=== PATIENT | female | born 2000 | race Caucasian/White ===

== ENCOUNTER 2025-07-03 10:57 | Outpatient (AMB) | payer MEDICAID, SELFPAY ==
[2025-07-03 11:16] VITALS: BP 128/77; PULSE 80; RESP 18; TEMP 36.2; O2SAT 98; BMI 30.9
--- NOTE | 2025-07-03 11:16 | OBCLNT_ITS ---
Vital Signs 07/03/25 11:16 Height 1.5 m Height Method Stated Weight 69.4 kg Weight Measurement Method Standing Scale BMI 30.9 BP 128/77 Blood Pressure Source Automatic Cuff Blood Pressure Location Left Upper Arm Position Sitting Respiration 18 Pulse 80 Pulse Source Monitor Temp 97.2 F Temp Source Oral Pulse Oximetry (%) 98 Oxygen Delivery Method Room Air Allergies/Home Meds Allergies & Medications Allergies No Known Allergies Allergy (Verified 07/03/25 11:18) Medication Reconciliation vit no.95-ferrous fumarate 28 mg-folic acid 800 mcg tablet () 1 tab PO QDAY 05/27/23 [History Confirmed 07/03/25] azithromycin 500 mg tablet 1,000 mg (2 x 500 mg) PO QDAY 1 day #2 tabs 07/03/25 [Rx] azithromycin 500 mg tablet 1,000 mg (2 x 500 mg) PO QDAY chlamydia 1 day #2 tabs 07/03/25 [Rx] Intake Visit Data Collection New Patient or Established: Established Patient (seen at [facility] within 3 years) Reason for Visit:: OB Seen by Clinical Staff ONLY (RN/MA): No Directory Clerk Required: No Do You Feel Safe at Home: Yes Authorities Contacted: N/A PCP or OBGYN visit in last 3 months: Yes Hx Now: Yes Are you currently on any form of Control: No Pain Present Currently: No Pain Scale Used: Eugene-Willis/Numerical Pain scale:: 0 Smoking Status Smoking Status: Never smoker Immunizations Flu Vaccine in the Last 12 Months: No Flu Vaccine Exclusion Criteria: Refused by Patient Questionnaires Covid-19 Vaccine Questionnaire Has patient been vacinated for Covid-19 Have you been vacinated for Covid-19: No PHQ-9 PHQ-2 Over the last 2 weeks, how often have you been bothered by any of the following problems? 1. Little interest or pleasure in doing things: not at all 2. Feeling down, depressed, or hopeless: not at all Total score: 0 PHQ-9 3. Trouble falling or staying asleep, or sleeping too much: Not at all 4. Feeling tired or having little energy: Not at all 5. Poor appetite or overeating: Not at all 6. Feeling bad about yourself - or that you are a failure or have let yourself or your family down: Not at all 7. Trouble concentrating on things, such as reading the newspaper or watching television: Not at all 8. Moving or speaking so slowly that other people could have noticed? - Or the opposite - being so fidgety or restless that you have been moving around a lot more than usual: not at all 9. Thoughts that you would be better off or of hurting yourself in some way: Not at all Total score: 0 If you checked off any problems, how difficult have these problems made it for you to do your work, take care of things at home, or get along with other people?: not difficult at all Source: Developed by Drs. Zechariah Kimbrough, Belgica Francois, Toño De La Garza and colleagues, with an educational elizabeth from [employer]. Depression screen completed yes Social History Living Situation History Marital Status: Lives With: Family Housing: Apartment Tobacco History Smoking Status: Never smoker Second Hand Smoke Exposure: No Alcohol History Alcohol Intake: Never Domestic Abuse History Do You Feel Safe at Home: Yes History of Present Illness HPI Narrative 25-year-old 3 para 2 for OBI. Patient is a transfer from Dr Galvez's office. Poor care and limited visits at Dr Galvez so patient was asked to leave care. Last menstrual period. 2024. Estimated due date July 27, 2025. Patient reports good movement. Denies leaking. Denies bleeding. She states that she thought she had an ultrasound at Dr Galvez's. And that she did the carrier screen. There is no records of that. Denies social habits. Denies surgery. Denies chronic illness. She had blood transfusion for bleeding after the first . Patient still working and she would like to start on disability. 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 Last. Was October 20, 2024. Patient is her dates. Estimated due date July 27, 2025. Reports movement. Denies leaking, bleeding, contractions. Patient is still working at 36 weeks. Her last date of work will be July 07. And disability will start July 08. History of positive chlamydia with this and no treatment. 25-year-old 3 para 2 for OBI. Last. Was October 20, 2024. Patient is her dates. Estimated due date July 27, 2025. Reports movement. Denies leaking, bleeding, contractions. Patient is still working at 36 weeks. Her last date of work will be July 07. And disability will start July 08. History of positive chlamydia with this and no treatment. OB ultrasound today baby measured 2552 g. Measuring 35 weeks. LAILA was 8.3. Baby is breech and placenta anterior. Patient sent to labor and delivery for NST and complete OB sono. I did new swab and GBS today. Patient and partner were given Zithromax 1 g p.o. to take now. I discussed safe sex and compliance with taking no medication for positive chlamydia. No sex for at least a week after both taken and then condoms for 2 weeks. Discussed labor precautions and kick count. We did no OB panel today including the 1 hour GTT and A1c. Return in a week OB check Menstrual History Menstrual reliability: definite Flow: normal Menstrual regularity: regular Monthly: Yes Age at menarche: 11 On control pills at conception: No OB History : 3 Para: 2 Hx # Pregnancies: 0 # of Living Children: 2 Delivery History 1st : Child's name: NA date: 03/29/21 sex: female Delivery type: vaginal weight (lbs): 3175.147 g History of depression before or after : No 2nd : Child's name: NA date: 05/31/23 sex: female Delivery type: vaginal History of depression before or after : No Infection History & Risk Evaluation History of STDs: none HIV risk evaluation: low risk Hepatitis B risk evaluation: low risk Patient or partner has history of Genital Herpes: No Varicella/chicken pox status: immunized Genetic Screening & History Genetic Screening/Teratology Counseling - Includes patient, baby's father, or anyone in either family with: 1. Patient's age 35 years or older as of estimated date of delivery: No 2. Thalassemia (Latvian, Hungarian, Mediterranean, or Background); MCV less than 80: No 3. Neural Tube Defect (Meningomyelocele, Spina Bifida, or Anencephaly): No 4. Congenital Heart Defect: No 5. Down Syndrome: No 6. Nicola-Sachs (Ashkenazi Worship, Cajun, [place]ian [place]): No 7. Padmaja Disease (Ashkenazi Worship): No 8. Familial Dysautonomia (Ashkenazi Worship): No 9. Sickle Cell Disease or Trait (): No 10. Hemophilia or other blood disorders: No 11. Muscular Dystrophy: No 12. Cystic Fibrosis: No 13. Shen's Chorea: No 14. Mental Retardation/Autism: No 15. Other inherited genetic or chromosomal disorder: No 16. Maternal Metabolic Disorder (EG,TYPE 1 Diabetes, PKU): No 17. Patient or baby's father had a child with defects not listed above: No 18. Recurrent loss or a stillbirth: No 19. Medications (including supplements, vitamins, herbs or otc drugs)/illicit/recreational drugs/alcohol since last menstrual period: No 20. Any other: No Infection History 1. Live with someone with TB or exposed to TB: No 2. Rash or viral illness since last menstrual period: No 3. Hepatitis B,C: No 4. History of STD: chlamydia Other (see comments) Source: [employer] Review of Systems Review of Systems Systems Reviewed: All systems reviewed, normal except as documented Exam General Limitations: no limitations General Appearance: alert, in no apparent distress, comfortable, cooperative, h ealthy appearing, well developed and well groomed Head Head exam: atraumatic, normocephalic and normal inspection Neck Neck exam: Present normal inspection, full ROM and trachea midline Chest Chest inspection: Present normal inspection and symmetric chest wall rise Resp Respiratory exam: Present normal lung sounds bilaterally Card Cardiovascular exam: Present regular rate, normal rhythm and normal heart sounds Psych Psychiatric exam: Present normal affect and normal mood Office Procedures OBC Clinic LOC & Office Proc's Nursing/Assessment Patient Status: Established Patient OB Clinic Nursing Assessment: Medication Reconciliation, Update PMH in EMR and Vital Signs OB Clinic Coordination of Care: Consent,records obtained, informed consent, Education Simp Pt/Fam, Lab and Imaging orders, Results/Orders obtained and Staff clarify orders Special Needs: Heart tones Established Patient Charge Established Patient Point Assignment: 110 Established Patient Point Charge: EP Level 3 (80-115) Assessment & Plan Diagnosis / Problem List (1) Encounter for supervision of high risk in third trimester, antepartum: Status: Acute (2) Chlamydia infection affecting : Status: Acute Qualifiers: Trimester: third trimester Qualified Code(s): O98.813 - Other maternal infectious and parasitic diseases complicating , third trimester; A74.9 - Chlamydial infection, unspecified Plan NST and complete OB at labor and delivery today. OB panel, 1 hour and A1c given to patient. Discussed safe sex today. I gave patient and partner both Zithromax 1 g p.o. No sex for at least a week. And condoms after that. Discussed kick count and labor precautions. Disability will start on July 08, 2025. Last date of work will be July 07, 2025. Return in 1 week for OB check Additional Plan Follow Up: 1 Week (obc)
== END 2025-07-03 11:37 | disposition home or self-care (01) ==
PROVIDERS: PCP Family Medicine; Referring Provider Family Medicine; Supervising Provider Advanced Practice Midwife; Visit Provider Advanced Practice Midwife
DX: O09.893 Supervision of other high risk pregnancies, third trimester (principal); O98.313 Other infections with a predominantly sexual mode of transmission complicating pregnancy, third trimester; A56.8 Sexually transmitted chlamydial infection of other sites; Z3A.36 36 weeks gestation of pregnancy
CPT/HCPCS: 99213; G0463

== ENCOUNTER 2025-07-03 11:56 | Outpatient (CLI) | payer MEDICAID, SELFPAY ==
[2025-07-03 12:02] VITALS: BP 115/65; PULSE 88
[2025-07-03 12:05] VITALS: BP 115/65; PULSE 88; RESP 16; RESP 99; TEMP 36.8; BMI 30.9
--- NOTE | 2025-07-03 12:05 | XR_ITS ---
Examination: Complete OB ultrasound greater than 14 weeks Date and time of exam: 07/03/2025 at 12:47 p.m. INDICATION: Late transfer to care. Findings: Viable intrauterine single fetus with single amniotic sac, LAILA of 8.3 cm. . Composite estimated gestational age based on BPD, head circumference, abdominal circumference, femur length is 35 weeks 0 days, with ALYSSA of 08/07/2025. Nearly 3-week discrepancy between ultrasound gestational age and clinical gestational age of 37 weeks, 6 days with ALYSSA of 07/18/2025. presentation: Breech Cardiac motion: 145 bpm. Four-chamber heart. Placenta: Anterior, grade 2, no previa or abruption. survey is limited due to advanced gestational age. No hydronephrosis. Bladder, three-vessel cord, cord insertion and stomach are visualized. EFW = 2552.5 g +/-378 g Cervix: Measures 6.3 cm in length, closed. Maternal ovaries obscured by bowel gas. Impression: Single live IUP in breech position. Composite estimated gestational age is 35 weeks 0 days, with ALYSSA of 08/07/2025. Nearly 3-week discrepancy between ultrasound gestational age and clinical gestational age of 37 weeks, 6 days with ALYSSA of 07/18/2025. LAILA = 8.3 cm.
== END 2025-07-03 13:45 | disposition home or self-care (01) ==
LOC: S4S1 11:57 → S4SX 11:57
PROVIDERS: Referring Provider Advanced Practice Midwife; Visit Provider Advanced Practice Midwife
DX: Z34.83 Encounter for supervision of other normal pregnancy, third trimester (principal); Z36.9 Encounter for antenatal screening, unspecified; Z3A.37 37 weeks gestation of pregnancy
CPT/HCPCS: 59025; 76805

== ENCOUNTER 2025-07-13 11:42 | Outpatient (AMB) | payer MEDICAID, SELFPAY ==
[2025-07-13 11:47] VITALS: BP 131/78; PULSE 99; RESP 18; TEMP 36.2; O2SAT 98; BMI 31.1
--- NOTE | 2025-07-13 11:47 | AMB.OBVISIT ---
Vital Signs 07/13/25 11:47 Height 1.5 m Height Method Stated Weight 70.08 kg Weight Measurement Method Standing Scale BMI 31.1 BP 131/78 H Blood Pressure Source Automatic Cuff Blood Pressure Location Left Upper Arm Position Standing Respiration 18 Pulse 99 Pulse Source Monitor Temp 97.2 F Temp Source Oral Pulse Oximetry (%) 98 Oxygen Delivery Method Room Air Allergies/Home Meds Allergies & Medications Allergies No Known Allergies Allergy (Verified 07/13/25 11:48) Medication Reconciliation vit no.95-ferrous fumarate 28 mg-folic acid 800 mcg tablet () 1 tab PO QDAY 05/27/23 [History Confirmed 07/13/25] ferrous sulfate 325 mg (65 mg iron) tablet 325 mg PO BID #60 tabs 07/13/25 [Rx] fluconazole 150 mg tablet 150 mg PO QDAY 3 days #3 tabs 07/13/25 [Rx] metronidazole 500 mg tablet 500 mg PO BID 7 days #14 tabs 07/13/25 [Rx] Intake Visit Data Collection New Patient or Established: Established Patient (seen at [facility] within 3 years) Reason for Visit:: OBC Seen by Clinical Staff ONLY (RN/MA): No All Round Logger Required: No Do You Feel Safe at Home: Yes Authorities Contacted: N/A PCP or OBGYN visit in last 3 months: Yes Date of Last PCP or OBGYN visit: 07/03/25 Hx Now: Yes Are you currently on any form of Control: No Pain Present Currently: No Pain Scale Used: Eugene-Willis/Numerical Pain scale:: 0 Smoking Status Smoking Status: Never smoker Immunizations Flu Vaccine in the Last 12 Months: No Flu Vaccine Exclusion Criteria: No Exclusion Criteria Questionnaires Covid-19 Vaccine Questionnaire Has patient been vacinated for Covid-19 Have you been vacinated for Covid-19: No PHQ-9 PHQ-2 Over the last 2 weeks, how often have you been bothered by any of the following problems? 1. Little interest or pleasure in doing things: not at all 2. Feeling down, depressed, or hopeless: not at all Total score: 0 PHQ-9 3. Trouble falling or staying asleep, or sleeping too much: Not at all 4. Feeling tired or having little energy: Not at all 5. Poor appetite or overeating: Not at all 6. Feeling bad about yourself - or that you are a failure or have let yourself or your family down: Not at all 7. Trouble concentrating on things, such as reading the newspaper or watching television: Not at all 8. Moving or speaking so slowly that other people could have noticed? - Or the opposite - being so fidgety or restless that you have been moving around a lot more than usual: not at all 9. Thoughts that you would be better off or of hurting yourself in some way: Not at all Total score: 0 If you checked off any problems, how difficult have these problems made it for you to do your work, take care of things at home, or get along with other people?: not difficult at all Source: Developed by Drs. Zechariah Kimbrough, Belgica Francois, Toño De La Garza and colleagues, with an educational elizabeth from [employer]. 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 Last. Was October 20, 2024. Patient is her dates. Estimated due date July 27, 2025. Reports movement. Denies leaking, bleeding, contractions. Patient is still working at 36 weeks. Her last date of work will be July 07. And disability will start July 08. History of positive chlamydia with this and no treatment. 25-year-old 3 para 2 for OBI. Last. Was October 20, 2024. Patient is her dates. Estimated due date July 27, 2025. Reports movement. Denies leaking, bleeding, contractions. Patient is still working at 36 weeks. Her last date of work will be July 07. And disability will start July 08. History of positive chlamydia with this and no treatment. OB ultrasound today baby measured 2552 g. Measuring 35 weeks. LAILA was 8.3. Baby is breech and placenta anterior. Patient sent to labor and delivery for NST and complete OB sono. I did new swab and GBS today. Patient and partner were given Zithromax 1 g p.o. to take now. I discussed safe sex and compliance with taking no medication for positive chlamydia. No sex for at least a week after both taken and then condoms for 2 weeks. Discussed labor precautions and kick count. We did no OB panel today including the 1 hour GTT and A1c. Return in a week OB check 07/13/25 <del>?</del> 38w 0d 70.08 kg 131/78 occasional cephalic 38 145 active Reports good movement. Denies any leaking or bleeding. Occasional contraction. Complains of vaginal discharge and itch. Patient has positive yeast and bacterial vaginosis on her NuSwab. Positive GBS Discussed comfort measures for vaginitis. I treated with Flagyl 500 p.o. twice daily x 7 and Diflucan 150 p.o. daily x 3. Patient to labor and delivery for IV iron transfusion x 2 and I ordered iron twice a day. Discussed labor precautions and kick count twice a day and return week OB check ALYSSA Calculator Estimated Delivery Date Method Current WG Current Estimate 07/27/25 LMP (Certain) 38w 0d Other Estimates 08/07/25 Ultrasound #1 36w 3d 07/27/25 Manual 38w 0d 07/03: breech, 2552gm Notes Visit Date: 07/13/25 Last Updated by: Yudi Cunningham CNM GBS+, nuswab: gc/CT-, +BV and yeast. rub ni, hbsag-,hiv-,hc-, HC/HGB: 28/8.9, 1 hr gtt wnl, A1: 5.5 Visit Date: 07/03/25 Last Updated by: Yudi Cunningham CNM 25 yo lmp: 10/20/24. EDC: 07/27/25. + CT this /no treatment Office Procedures OBC Clinic LOC & Office Proc's Nursing/Assessment Patient Status: Established Patient OB Clinic Nursing Assessment: Medication Reconciliation, Update PMH in EMR and Vital Signs OB Clinic Coordination of Care: Consent,records obtained, informed consent, Education Simp Pt/Fam, Lab and Imaging orders, Results/Orders obtained and Staff clarify orders Special Needs: Heart tones Established Patient Charge Established Patient Point Assignment: 110 Established Patient Point Charge: EP Level 3 (80-115) Assessment & Plan Diagnosis / Problem List (1) Encounter for supervision of high risk in third trimester, antepartum: Status: Acute (2) Vaginitis: Status: Acute Qualifiers: Chronicity: acute Qualified Code(s): N76.0 - Acute vaginitis Plan Patient is sent to labor and delivery for IV iron x 2. Flagyl 500 p.o. twice daily x 7. Limited Diflucan 150 p.o. daily x 3. Reviewed labor precautions and kick count. And comfort measures for vaginitis. Continue to practice safe sex. Iron p.o. ordered to take twice a day. And I discussed GBS positive with patient return in a week OB Additional Plan Follow Up: 1 Week (obc)
== END 2025-07-13 12:09 | disposition home or self-care (01) ==
LOC: HODSOBC 11:42
PROVIDERS: Supervising Provider Advanced Practice Midwife; Visit Provider Advanced Practice Midwife
DX: O09.893 Supervision of other high risk pregnancies, third trimester (principal); O23.593 Infection of other part of genital tract in pregnancy, third trimester; N76.0 Acute vaginitis; O98.813 Other maternal infectious and parasitic diseases complicating pregnancy, third trimester; B37.31 Acute candidiasis of vulva and vagina; O99.820 Streptococcus B carrier state complicating pregnancy; Z3A.38 38 weeks gestation of pregnancy
CPT/HCPCS: 99213; G0463

== ENCOUNTER 2025-07-13 13:35 | Observation (INO) | payer MEDICAID, SELFPAY ==
[2025-07-13 13:45] VITALS: BP 116/65; PULSE 99
[2025-07-13 14:35] VITALS: BP 116/65; PULSE 99; RESP 20; RESP 99; TEMP 36.6; BMI 31.5
[2025-07-13] MEDS: FERRIC SOD GLUC INJ 125 MG in SODIUM CHLORIDE 0.9% 100 ML 110 MG IV (14:46)
== END 2025-07-13 15:55 | disposition home or self-care (01) ==
PROVIDERS: Admitting Provider Advanced Practice Midwife; Visit Provider Advanced Practice Midwife
DX: Z34.83 Encounter for supervision of other normal pregnancy, third trimester (principal); Z3A.39 39 weeks gestation of pregnancy
CPT/HCPCS: 59025; 59899; J2916; J7050

== ENCOUNTER 2025-07-16 02:37 | Inpatient (IN) | payer MEDICAID, SELFPAY ==
[2025-07-16] VITALS (21 sets, daily range): BP systolic 100–139; BP diastolic 58–81; PULSE 74–101; RESP 16–100; TEMP 36.6–37.3; O2SAT 99–100; BMI 31.3
[2025-07-16] MEDS: Ampicillin Inj 2,000 MG in SODIUM CHLORIDE 0.9% (POP) 100 ML 200 MG IV (04:54)
--- NOTE | 2025-07-16 05:02 | XR_ITS ---
EXAMINATION: age Limited TECHNIQUE: Limited transabdominal sonographic images pelvis INDICATIONS: Late to care, unknown presentation Date and time: July 16, 2025, 0426 hours FINDINGS: Viable intrauterine gestation in cephalic presentation. spine anterior Cervix not seen IMPRESSION: Viable intrauterine gestation cephalic presentation
[2025-07-16 05:10] LABS: Basophils # (Auto) 0.1 Thou/mm3 (0.0-0.2); Basophils % (Auto) 0 % (0-2.5); Eosinophils # (Auto) 0.0 Thou/mm3 (0.0-0.5); Eosinophils % (Auto) 0 % (0-10); Hematocrit 31.0 % (36.0-46.0); Hemoglobin 9.5 g/dL (12.0-16.0); Immature Granulocytes Auto 0.17 Thou/mm3 (0.00-0.00); Lymphocytes # (Auto) 2.3 Thou/mm3 (1.0-4.8); Lymphocytes % (Auto) 15 % (10-50); Mean Corpuscular HGB Conc 30.6 g/dl (31.0-37.0); Mean Corpuscular Hemoglobin 21.0 pg (25.0-35.0); Mean Corpuscular Volume 68 fL (80-100); Monocytes # (Auto) 0.6 Thou/mm3 (0.0-0.8); Monocytes % (Auto) 4 % (0-12); Neutrophils # (Auto) 12.5 Thou/mm3 (1.8-7.7); Neutrophils % (Auto) 80 % (37-80); Nucleated Red Blood Cell # 0.03 Thou/mm3 (0.00-0.00); Nucleated Red Blood Cell % 0 /100 WBC (0); Platelet Count 339 Thou/mm3 (140-440); RDW Standard Deviation 42.0 fL (36.4-46.3); Red Blood Count 4.53 Miln/mm3 (4.00-5.20); White Blood Count 15.7 Thou/mm3 (3.6-11.0)
--- NOTE | 2025-07-16 05:22 | PD.LDDELS ---
Data ([place]) Data Hx Section: No : 3 Term: 2 : 0 Livin Abortions: Spontaneous & Theraputic: 0 Delivery Data ([facility]) Delivery Data Delivered by: Kaci Delivery Method Presentation: Vertex
--- NOTE | 2025-07-16 05:26 | ESHP_ITS ---
Documentation for date of: 07/16/25 OB Labor/Induct. HPI History of Present Illness Chief complaint: Labor : 3 Para: 2 Term pregnancies: 2 pregnancies: 0 Living children: 2 History of Abortions: Spontaneous and Elective: 0 History of Vaginal deliveries: 2 History of sections: No History of : No ALYSSA: 07/27/25 Gestational Age (weeks): 38 Gestational Age (days): 3 History of present illness: 25-year-old 3 para 2-0-0-2 at 38 weeks and 3 days presented to labor and delivery triage with contractions. Patient denied any leakage of fluid or vaginal bleeding and she reported adequate movements. 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 History of Present Adequate Care: Yes Labs Labs: Positive: Group Beta Strep, Negative: RPR, Hepatitis B, Rubella Titre, HIV, Chlamydia and Gonorrhea and Unknown: Herpes Type 1, Herpes Type 2 and Covid-19 Past Medical History Surgical History SURGICAL: Negative Section Meds Home Medications and Allergies Allergies Allergy/AdvReac Type Severity Reaction Status Date / Time No Known Allergies Allergy Verified 07/16/25 03:00 OB Exam Physical Exam Vital signs: Temp Pulse Resp BP Pulse Ox 98 F 81 19 137/73 H 99 07/16/25 03:00 07/16/25 04:57 07/16/25 03:00 07/16/25 04:57 07/16/25 03:04 Constitutional Constitutional: no acute distress Routine HEENT Exam Head: Present normocephalic and atraumatic Eye: Present EOMI and PERRL ENT: Present mucous membranes moist Routine Neck Exam Neck: Present supple and trachea midline Routine Cardiovascular Exam Cardiovascular: Present RRR Routine Abdominal Exam Abdominal: Present soft and normoactive bowel sounds Detailed Labor and Delivery Exam Dilation (cm): 4 Effacement (%): 100 Cervix position: mid station: -2 Consistency: soft Presentation: Vertex Baseline heart rate: 145 monitor accelerations: 15x15 monitor decelerations: None penitentiary variability: Average (6-10) Routine Extremities Exam Extremities: Present full ROM Routine Skin Exam Skin: Present intact, dry and warm Routine Neurological Exam Neurological: Present alert, oriented X3 and CN II-XII intact Routine Psychiatric Exam Psychiatric: Present normal affect and normal thought process OB Results Labs 07/16/25 04:35 Labs: Short CBC 07/16/25 Range/Units 04:35 WBC 15.7 H (3.6-11.0) Thou/mm3 Hgb 9.5 L (12.0-16.0) g/dL Hct 31.0 L (36.0-46.0) % Plt Count 339 (140-440) Thou/mm3 OB Assessment & Plan Assessment and Plan (1) Encounter for supervision of high risk in third trimester, antepartum: Status: Acute (2) Active labor at term: Status: Acute Assessment and plan: Admit to inpatient status IV access, LR at 125 cc/h, CBC, type and screen, RPR, repeat gonorrhea chlamydia and bacterial vaginosis panel Group B strep positive, antibiotics as per protocol Pain management as per protocol Continuous maternal monitoring Expectant management, anticipate vaginal delivery
[2025-07-16] MEDS: IBUPROFEN TAB 400 MG TABLET 800 MG PO (05:42)
[2025-07-16 05:50] LABS: Syphilis Nonreactive (Nonreactive)
--- NOTE | 2025-07-16 06:03 | PD.LDDELS ---
Data ([facility]) Data Hx Section: No : 3 Term: 2 : 0 Livin Abortions: Spontaneous & Theraputic: 0 Delivery Data ([facility]) Labor Data Initiation of labor: Spontaneous Induction/Augmentation Agent: Artificial ROM ROM date: 07/16/25 ROM time: 05:09 Amniotic membrane rupture type: Artificial Amniotic fluid description: Clear Delivery Data Onset of labor date: 07/16/25 Onset of labor time: 00:00 Complete dilation date: 07/16/25 Complete dilation time: 05:07 delivery date: 07/16/25 [place] delivery time: 05:13 Placenta delivery date: 07/16/25 Placenta delivery time: 05:17 Stage 1 total time: Labor - Stage 1 Duration 5 hours and 7 minutes Delivered by: Kaci Delivery nurse: Osvaldo VILLALBA RN. [place] nurse: Muna DURAN RN. Named Account Executive at delivery: No Support person(s) at delivery: FOB. Delivery Method Delivery method: Normal Vaginal Delivery Presentation: Vertex Anesthesia Type Anesthesia Type: None Placenta Placenta delivery description: Spontaneous Cord blood sent to lab: Yes cord blood collection: Cord Blood Type Episiotomy Episiotomy description: None Umbilical Cord cord description: 3 Vessels [place] Data ([facility]) Data 's gender: Male Identification band number: [id number] 1 minute: 9 5 minutes: 9
--- NOTE | 2025-07-16 06:11 | PRELIM_ITS ---
Limited obstetric ultrasound for assessment of presentation (transabdominal). July 16, 2025, 0426 hours Clinical history: Presentation. Technique: Real-time ultrasound was performed. Comparison: No prior study is available for comparison. Findings and Impression: There is an intrauterine fetus in cephalic presentation with the spine anterior. The cervix is not seen. Report Electronically Signed By: Rajendra Tillman 07/16/2025 6:10:52 AM [EST]
[2025-07-16 06:22] LABS: Amphetamine/Metham Scrn,Ur OB Negative (Negative); Benzoylecgonine Screen, Ur OB Negative (Negative); Opiate Screen,Urine OB Negative (Negative); THC Screen,Urine OB Negative (Negative)
[2025-07-16] MEDS: DOCUSATE SOD 100 MG CAPSULE PO (08:37)
[2025-07-16] MEDS: FERRIC SOD GLUC INJ 125 MG in SODIUM CHLORIDE 0.9% 100 ML 110 MG IV (10:20)
[2025-07-16 15:05] LABS: Chlamydia trachomatis PCR Negative (Not Detect); Neisseria Gonorrhoeae DNA PCR Negative (Not Detect); Trichomonas Negative (Negative)
[2025-07-16 17:19] LABS: Path Review Blood Smear Sent to Pathologist
[2025-07-17 00:36] VITALS: BP 118/73; PULSE 70; RESP 16; TEMP 36.7; O2SAT 98
[2025-07-17] MEDS: IBUPROFEN TAB 400 MG TABLET 800 MG PO (01:15)
[2025-07-17 04:45] VITALS: BP 110/71; PULSE 73; RESP 18; TEMP 36.5; O2SAT 98
[2025-07-17 07:30] VITALS: BP 110/67; PULSE 78; RESP 18; TEMP 36.8; O2SAT 98
--- NOTE | 2025-07-17 08:09 | PD.LDPPPRG ---
Subjective Subjective Interval history: Patient is a 25-year-old G3 now P3003 status post vaginal delivery 07/16/2025 at about 6 AM. Patient is resting comfortably in bed this morning wearing her own pajamas. She is exclusively bottlefeeding. She is voiding, ambulating,. Her pain is controlled with oral pain medication. Her bleeding is minimal. She would like to go home. Of note she is anemic, yesterday's hemoglobin is 9.5. She was given IV iron. Her morning CBC is pending today. Exam Vital Signs Temp Pulse Resp BP Pulse Ox O2 Del Method 97.7 F 73 18 110/71 98 Room Air 07/17/25 04:45 07/17/25 04:45 07/17/25 04:45 07/17/25 04:45 07/17/25 04:45 07/17/25 04:45 Narrative Exam Patient is alert and orient x 3 in no apparent distress. Fundus is firm at umbilicus. Extremities show no significant edema or erythema. Objective Labs 07/16/25 04:35 Labs: Laboratory Results - last 24 hr 07/16/25 07/16/25 02:45 04:35 Smear Path Review Sent to Pathologist Chantal trachomat DNA PCR Negative N.gonorrhoeae DNA (PCR) Negative Trichomonas DNA Probe Negative Assessment & Plan Problem List (1) care following vaginal delivery: Status: Acute Assessment and plan: Patient is day #1 today. She is doing well. Discharge home today. Discharge instructions given. Follow-up in 2 weeks at the clinic. Time Spent With Patient Time: Total time spent is greater than 50% in coordination of care (as documented) at patient's floor/unit and/or counseling patient: Time with patient: less than 15 minutes
--- NOTE | 2025-07-17 08:12 | ESDS_ITS ---
DS: Providers Provider Date of admission: 07/16/25 04:20 Primary care physician: Physician No Primary/Family Admitting Provider: Eloy Clemons MD Attending Provider on Admission: Eloy Clemons MD Consults: 07/16/25 06:01 Referral Routine Comment: Attending Provider on DC: Marilia Saunders MD ([facility]) Discharging Provider: Marilia Saunders MD ([facility]) Anticipated date of discharge: 07/17/25 DS: Diagnosis Discharge Diagnosis (1) care following vaginal delivery: Status: Acute Assessment & Plan: Instruction is given including no intercourse x 6 weeks. No bathtubs tampons or douching x 6 weeks. (2) Anemia affecting : Status: Acute Assessment & Plan: The patient is encouraged to take iron and her vitamins. She was given IV iron x 1. Problem List Completed Was Problem List Reviewed/Reconciled?: Yes Summary/Hosp Course Brief History: 25-year-old 3 para 2-0-0-2 at 38 weeks and 3 days presented to labor and delivery triage with contractions. Patient denied any leakage of fluid or vaginal bleeding and she reported adequate movements. Patient had limited care in the current , she was seen briefly at an outside facility and then transferred care to the [facility] clinic at 36 weeks plus Current is significant for history of anemia requiring IV iron. The patient was admitted by Dr. Clemons. Please see history and physical for further details. Hospital course: The patient was admitted and underwent an uncomplicated vaginal delivery 07/16/2025 at about 6:00 in the morning. Post course was uncomplicated. By day #1, patient was voiding, ambulating, tolerating a general diet. Her bleeding was minimal. She was afebrile. She was bottlefeeding only. She was discharged home day #1 in stable condition. Discharge instructions included no intercourse x 6 weeks. Pelvic rest x 6 weeks, no bathtubs, douching or tampons x 6 weeks. Peripartum Data Delivery Method: Normal Vaginal Delivery Episiotomy Description: None Laceration Description: see Delivery Summary complications: none Status at Discharge Functional status at discharge: independent ambulation Overall status at discharge: patient is progressing back to baseline Time Spent with Patient Time attestation: Total time spent providing and/or coordinating discharge services: Time spent: Less than 30 minutes Specific discharge activities: Pelvic rest x 6 weeks Exam Vital Signs Temp Pulse Resp BP Pulse Ox O2 Del Method 97.7 F 73 18 110/71 98 Room Air 07/17/25 04:45 07/17/25 04:45 07/17/25 04:45 07/17/25 04:45 07/17/25 04:45 07/17/25 04:45 Narrative Exam Patient is alert and oriented x 3 in no apparent distress. Fundus is firm at umbilicus. Extremities show no significant edema or erythema. Discharge Plan Plan Patient Disposition: HOME (Self Care) Disposition Comment: Stable Patient condition on transfer: Stable Prescriptions/Referrals Prescriptions/Med Rec: New acetaminophen 325 mg Tablet 650 mg PO Q6HR PRN (Reason: Patient rated pain of 3) Qty: 30 0RF ibuprofen 400 mg Tablet 800 mg PO Q8HR PRN (Reason: Pain Scale 4-6 (Moderate) Qty: 30 0RF docusate sodium 100 mg Capsule 100 mg PO QDAY Qty: 30 0RF Continued ferrous sulfate 325 mg (65 mg iron) tablet 325 mg PO BID Qty: 60 2RF Referrals: No Primary/Family,Physician [Primary Care Provider] Patient/Caregiver Discharge Instructions Discharge Activity: activity as tolerated Other Discharge Activity Instructions:: Pelvic rest x 6 weeks Other Discharge Diet Instructions: High iron General Diet Education Materials: After Delivery [place] Concerns, Anemia During , Feel Healthy After Print Language: Liberian Activity Restrictions/Additional Instructions: Pelvic rest x 6 weeks. No intercourse, tampons, douching x 6 weeks. Call for heavy vaginal bleeding, severe depression or fevers. Follow-up in 2 weeks. Stand Alone Forms: Donna Award Info., Patient Portal Info Letter Discharge Order Discharge Orders: Discharge (Routine); Ordered 07/17/25 Ordered By: Marilia Saunders ([facility]) Planned Discharge Date 07/17/25 (2) Anemia affecting Qualifiers: Trimester: third trimester Qualified Code(s): O99.013 - Anemia complicating , third trimester
[2025-07-17 08:13] LABS: Basophils # (Auto) 0.0 Thou/mm3 (0.0-0.2); Basophils % (Auto) 0 % (0-2.5); Eosinophils # (Auto) 0.1 Thou/mm3 (0.0-0.5); Eosinophils % (Auto) 1 % (0-10); Hematocrit 25.0 % (36.0-46.0); Immature Granulocytes Auto 0.12 Thou/mm3 (0.00-0.00); Lymphocytes # (Auto) 2.6 Thou/mm3 (1.0-4.8); Lymphocytes % (Auto) 24 % (10-50); Mean Corpuscular HGB Conc 30.0 g/dl (31.0-37.0); Mean Corpuscular Hemoglobin 21.2 pg (25.0-35.0); Mean Corpuscular Volume 71 fL (80-100); Monocytes # (Auto) 0.5 Thou/mm3 (0.0-0.8); Monocytes % (Auto) 4 % (0-12); Neutrophils # (Auto) 7.6 Thou/mm3 (1.8-7.7); Neutrophils % (Auto) 70 % (37-80); Nucleated Red Blood Cell # 0.03 Thou/mm3 (0.00-0.00); Nucleated Red Blood Cell % 0 /100 WBC (0); Platelet Count 258 Thou/mm3 (140-440); RDW Standard Deviation 44.3 fL (36.4-46.3); Red Blood Count 3.53 Miln/mm3 (4.00-5.20); White Blood Count 10.9 Thou/mm3 (3.6-11.0)
[2025-07-17 08:15] LABS: Hemoglobin 7.5 g/dL (12.0-16.0)
[2025-07-17] MEDS: DOCUSATE SOD 100 MG CAPSULE PO (08:34)
--- NOTE | 2025-07-17 09:30 | PC.NURSE ---
Patient cleared by Gerard in psychosocial rehabilitation counselor
--- NOTE | 2025-07-17 10:54 | PC.SS ---
FLIGHT ENGINEER INSPECTOR conducted bedside contact with the patient to address nursing referral indicating patient was late to care at 19 weeks.? FLIGHT ENGINEER INSPECTOR introduced self and role.? At bedside with patient was MARTHA, Raymond Chaparro.? Patient gave permission for FOB to be present during discussion.? FLIGHT ENGINEER INSPECTOR reviewed basis of referral.? Patient confirmed late to care (19 weeks) due to inability to obtain OB services prior to 12 week timeline.? Patient relayed limited OB providers in local area.? OB services conducted with Dr. Galvez.? Patient reports consistency with OB appointments.? , Raymond; is the patient?s third child.? Infant delivered naturally.? Patient is receiving SNAP.? Patient is not receiving WIC or TANF.? Patient is employed at a local [employer].? Patient denies history of alcohol/drug abuse.? Patient denies CWS intervention.? Patient denies episodes of domestic violence.? Patient denies possessing a history of mental health, reports no current possession of depression or anxiety.? Patient plans on bottle feeding the .? Patient has access to appropriate supplies and equipment; to include a car seat.? FOB will provide transportation upon discharge.? Patient describes possessing support system consisting of FOB and mother.? FLIGHT ENGINEER INSPECTOR provided the patient with community resources to include Parenting Network and Warm Line.? No further intervention required at this time, addiction social worker will be available to address any further concerns.? FLIGHT ENGINEER INSPECTOR updated bedside nurse.?
[2025-07-17] MEDS: FERRIC SOD GLUC INJ 125 MG in SODIUM CHLORIDE 0.9% 100 ML 110 MG IV (11:43)
== END 2025-07-17 14:10 | disposition home or self-care (01) | DRG 560 ==
LOC: S4SX 09:24 → S4NX 11:43
PROVIDERS: Admitting Provider Obstetrics & Gynecology; Visit Provider Obstetrics & Gynecology
DX: O99.02 Anemia complicating childbirth (principal); Z3A.38 38 weeks gestation of pregnancy; Z37.0 Single live birth
CPT/HCPCS: 36415; 59409; 76815; 80307; 85025; 86780; 86850; 86870; 86900; 86901; 86921; 86922; 87491; 87591; 87661; J0290; J2916; J7050; A9270